=== PATIENT | male | born 1970 | race Caucasian/White ===

== ENCOUNTER 2019-03-05 07:28 | Day surgery (SDC) | payer BC ==
[2019-03-01 12:03] VITALS: BMI 43.0
[2019-03-05] MEDS ORDERED: LIDOCAINE HCL/PF 2% SDV 5ML VIAL ONE (07:52)
[2019-03-05] MEDS ORDERED: PROPOFOL 20 ML ONE ×4 (07:53)
[2019-03-05 08:58] VITALS: TEMP 98
[2019-03-05 09:41] VITALS: PULSE 54
[2019-03-05 09:42] VITALS: BP 122/65
--- NOTE | 2019-03-07 16:17 | PATH ---
Surgical Pathology Report Patient Name: ISAURO FOSS [facility]. Rec. #: [id number] /Age/Gender: 1970 (Age: 48) / M Account: [id number] Location: [facility] Taken: 03/05/2019 Received: 03/05/2019 Reported: 03/07/2019 Physicians: Harvey Parra M.D. Specimen(s) Received LIPOMA LEFT COLON Clinical History History of polyps Postoperative diagnosis: Lipoma Final Diagnosis LEFT COLON, LIPOMA, BIOPSY: COLONIC MUCOSA SHOWING MILD SURFACE HYPERPLASTIC CHANGE. Note: No definitive lipomatous tissue is identified. Electronically Signed Ely Smart M.D. Gross Description Received in formalin, labeled "biopsy lipoma left colon" is a parmar, irregular portion of soft tissue measuring 0.4 cm. in greatest dimension. The specimen is submitted in toto in one cassette. /03/06/2019 saudi03/06/2019
== END 2019-03-05 09:42 | disposition home or self-care (01) ==
LOC: FASU-ENDO 07:28
PROVIDERS: ATTEND Internal Medicine Gastroenterology
PROC: 0DBM8ZX Excision of Descending Colon, Via Natural or Artificial Opening Endoscopic, Diagnostic (ICD-10-PCS; principal; 2019-03-05 08:33)
DX: Z86.010 Personal history of colon polyps (principal); Z80.0 Family history of malignant neoplasm of digestive organs; K63.5 Polyp of colon
CPT/HCPCS: 88305-TC